=== PATIENT | male | born 1980 | race Caucasian/White ===

== ENCOUNTER 2017-10-30 10:56 | Inpatient (IN) | payer MEDICAID ==
[~2017-10-30] VITALS: Ht 175.3 cm; Wt 112.9 kg
[2017-10-30] MEDS ORDERED: NACL 0.9% 1,000 ML IV ONE (11:02)
[2017-10-30 11:03] VITALS: BP_SYST 155
[2017-10-30] MEDS ORDERED: MORPHINE 4 MG/ML INJ. SYRINGE IVP ONE (11:15)
[2017-10-30] MEDS ORDERED: ONDANSETRON HCL 4 MG/2 ML VIAL IVP ONE ×2 (11:15→18:15)
[2017-10-30 11:32] LABS: BASOPHILS % (AUTO) 0.5 % (0.0-2.0); EOSINOPHILS # (AUTO) 0.3 K/uL (0.0-0.4); EOSINOPHILS % (AUTO) 2.8 % (0.0-4.0); HEMATOCRIT 47.6 % (36-54); HEMOGLOBIN 15.8 g/dL (14.0-18.0); LYMPHOCYTES # (AUTO) 1.5 K/uL (1.0-5.5); LYMPHOCYTES % (AUTO) 15.6 % (20.5-51.5); MEAN CORPUSCULAR HEMOGLOBIN 28 pg (27-31); MEAN CORPUSCULAR HGB CONC 33 % (32-36); MEAN CORPUSCULAR VOLUME 85 fL (79.0-98.0); MONOCYTES # (AUTO) 0.7 K/uL (0.0-1.0); MONOCYTES % (AUTO) 7.3 % (1.7-9.3); NEUTROPHILS # (AUTO) 7.2 K/uL (1.8-7.7); NEUTROPHILS % (AUTO) 73.8 % (40.0-70.0); PLATELET COUNT (AUTO) 265 K/uL (130-430); WHITE BLOOD COUNT (AUTO) 9.7 K/uL (4.8-10.8)
[2017-10-30 11:41] LABS: BILIRUBIN,URINE NEGATIVE (NEGATIVE); BLOOD, URINE NEGATIVE (NEGATIVE); CLARITY/URINE CLEAR (CLEAR); COLOR,URINE YELLOW (YELLOW); GLUCOSE,URINE NEGATIVE (NEGATIVE); KETONES,URINE NEGATIVE (NEGATIVE); LEUKOCYTE ESTERASE ,URINE NEGATIVE (NEGATIVE); NITRITE, URINE NEGATIVE (NEGATIVE); PROTEIN URINE 1+ (NEGATIVE); UROBILINOGEN,URINE 0.2 (0.2-1.0)
[2017-10-30 11:43] LABS: CALCIUM 9.2 mg/dL (8.4-11.0); CREATININE 0.92 mg/dL (0.55-1.30); POTASSIUM 4.1 mmol/L (3.5-5.1)
[2017-10-30 11:47] LABS: ALBUMIN 3.5 g/dL (3.4-4.8); TOTAL BILIRUBIN 0.4 mg/dL (0.0-1.0)
[2017-10-30 11:57] LABS: BARBITURATE, URINE NEGATIVE (NEG <=200); BENZODIAZEPINE, URINE NEGATIVE (NEG <=150); CANNABINOID, URINE NEGATIVE (NEG <=50); COCAINE, URINE NEGATIVE (NEG <=150); METHAMPHETAMINES SCREEN,URINE NEGATIVE (NEG <=500); OPIATE, URINE NEGATIVE (NEG <=100); PHENCYCLIDINE SCREEN,URINE NEGATIVE (NEG <=25); UR TRICYCLIC ANTIDEPRESSANTS NEGATIVE (NEG <=300); URINE AMPHETAMINE NEGATIVE (NEG <=500); URINE METHADONE NEGATIVE (NEG <=200); URINE OXYCODONE SCREEN NEGATIVE (NEG <=100); URINE PROPOXYPHENE SCREEN NEGATIVE (NEG <=300)
[2017-10-30 11:58] LABS: PROTHROMBIN TIME 10.2 SECS (9.5-12.5)
[2017-10-30] MEDS ORDERED: D5LR 1,000 ML IV ONE (13:30)
[2017-10-30 13:38] VITALS: BP_SYST 152
[2017-10-30] MEDS ORDERED: ONDANSETRON HCL 4 MG/2 ML VIAL IVP PRN (14:00)
[2017-10-30] MEDS: FAMOTIDINE PF 20 MG/2 ML VIAL IVP SCH ×2 (14:00→21:34)
[2017-10-30 16:08] VITALS: BP_SYST 155
[2017-10-30] MEDS: AMPICILLIN SODIUM/SULBACTAM NA 1.5 GM in NS 50 ML IV SCH ×2 (16:31→18:59)
[2017-10-30] MEDS ORDERED: FAMOTIDINE PF 20 MG/2 ML VIAL IVP ONE (16:45)
[2017-10-30] MEDS ORDERED: cloNIDine HCL 0.2 MG TABLET PO PRN (17:00)
[2017-10-30] MEDS ORDERED: DEXTROSE 50% JECT 50 ML DISP.SYRIN IVP PRN (17:00)
[2017-10-30] MEDS ORDERED: amLODIPine BESYLATE 10 MG TABLET PO ONE (17:00)
[2017-10-30] MEDS ORDERED: HALOPERIDOL LACTATE 5 MG/ML VIAL IM PRN (17:00)
[2017-10-30] MEDS: QUEtiapine FUMARATE 100 MG TABLET PO SCH ×2 (18:00→21:00)
[2017-10-30] MEDS ORDERED: KETOROLAC TROMETHAMINE 30 MG VIAL IVP ONE (18:15)
[2017-10-30] MEDS ORDERED: MIDAZOLAM HCL 5 MG/5 ML VIAL IVP ONE (18:15)
[2017-10-30] MEDS ORDERED: SUCCINYLCHOLINE CHLORIDE 20 MG/ML(QUELICIN) IVP ONE (18:15)
[2017-10-30] MEDS ORDERED: MEPERIDINE HCL/PF 100 MG/ML AMP IM ONE (18:15)
[2017-10-30] MEDS ORDERED: CEFAZOLIN 2 GM IVPB PREMIX 50 ML IV ONE (18:15)
[2017-10-30] MEDS ORDERED: BUPIVACAINE /PF 0.5% 30 ML VIAL INJ ONE (18:15)
[2017-10-30] MEDS ORDERED: NS 1000 ML BAG IV ONE (18:15)
[2017-10-30] MEDS ORDERED: LIDOCAINE 1% 10 MG/ML, 20 ML MDV INJ ONE (18:15)
[2017-10-30] MEDS ORDERED: fentaNYL CITRATE 250 MCG/5 ML AMP IV ONE (18:15)
[2017-10-30] MEDS ORDERED: DEXAMETHASONE SOD PHOSPHATE 4 MG/ML VIAL IVP ONE (18:15)
[2017-10-30] MEDS ORDERED: LR 1,000 ML IV.SOLN IV ONE (18:15)
[2017-10-30] MEDS ORDERED: SEVOFLURANE 15 MIN GAS INH ONE (18:15)
[2017-10-30] MEDS ORDERED: PROPOFOL 200MG/ 20ML VIAL (DIPRIVAN) IV ONE (18:15)
[2017-10-30 19:55] VITALS: BP_SYST 147
[2017-10-31] MEDS: AMPICILLIN SODIUM/SULBACTAM NA 1.5 GM in NS 50 ML IV SCH ×5 (00:07→23:07)
[2017-10-31] MEDS: QUEtiapine FUMARATE 100 MG TABLET PO SCH ×3 (08:00→20:45)
[2017-10-31 08:40] VITALS: BP_SYST 137
[2017-10-31] MEDS: FAMOTIDINE PF 20 MG/2 ML VIAL IVP SCH ×2 (09:00→20:42)
[2017-10-31] MEDS: amLODIPine BESYLATE 10 MG TABLET PO SCH (09:22)
[2017-10-31 12:08] VITALS: BP_SYST 134
[2017-10-31] MEDS ORDERED: MEPERIDINE HCL/PF 50 MG/ML AMP ONE (15:39)
[2017-10-31 16:23] VITALS: BP_SYST 139
[2017-10-31] MEDS ORDERED: fentaNYL CITRATE/PF 100 MCG/2 ML AMP ONE (18:28)
[2017-10-31] MEDS ORDERED: HYDROmorphone 1 MG INJ. 1 MG/ML AMPUL IVP PRN (19:45)
[2017-10-31] MEDS ORDERED: MEPERIDINE HCL/PF 25 MG/ML DISP.SYRIN IVP PRN (19:45)
[2017-10-31] MEDS ORDERED: KETOROLAC TROMETHAMINE 30 MG VIAL IM ONE (19:45)
[2017-10-31] MEDS ORDERED: ONDANSETRON HCL 4 MG/2 ML VIAL IVP ONE (19:45)
[2017-10-31] MEDS ORDERED: fentaNYL CITRATE/PF 100 MCG/2 ML AMP IVP PRN (19:45)
[2017-10-31] MEDS ORDERED: NALOXONE HCL 0.4 MG/ML AMP (NARCAN) IVP ONE (19:45)
[2017-10-31] MEDS ORDERED: MIDAZOLAM HCL 5 MG/5 ML VIAL IVP PRN (19:45)
[2017-10-31 20:22] VITALS: BP_SYST 130
[2017-10-31] MEDS: MORPHINE 4 MG/ML INJ. SYRINGE IVP PRN (20:38)
[2017-10-31] MEDS: KETOROLAC TROMETHAMINE 15 MG VIAL IVP PRN (23:53)
[2017-11-01] MEDS: AMPICILLIN SODIUM/SULBACTAM NA 1.5 GM in NS 50 ML IV SCH (05:04)
[2017-11-01] MEDS: INSULIN REGULAR, HUMAN 100 UNITS/ML, 10 ML VIAL (novoLIN R) SUBCUT PRN ×3 (06:17→20:09)
[2017-11-01 06:31] LABS: HEMATOCRIT 46.4 % (36-54); HEMOGLOBIN 15.7 g/dL (14.0-18.0); MEAN CORPUSCULAR HEMOGLOBIN 29 pg (27-31); MEAN CORPUSCULAR HGB CONC 34 % (32-36); MEAN CORPUSCULAR VOLUME 85 fL (79.0-98.0); PLATELET COUNT (AUTO) 288 K/uL (130-430); RED BLOOD CELL COUNT(AUTO) 5.48 MIL/uL (4.2-6.2); RED CELL DISTRIBUTION WIDTH 12.8 % (9.0-15.0); WHITE BLOOD COUNT (AUTO) 21.2 K/uL (4.8-10.8)
[2017-11-01 07:01] LABS: ALBUMIN 3.1 g/dL (3.4-4.8); CALCIUM 8.9 mg/dL (8.4-11.0); CREATININE 0.88 mg/dL (0.55-1.30); POTASSIUM 4.3 mmol/L (3.5-5.1)
[2017-11-01 08:00] VITALS: BP_SYST 144
[2017-11-01] MEDS: QUEtiapine FUMARATE 100 MG TABLET PO SCH ×3 (08:00→21:00)
[2017-11-01] MEDS: amLODIPine BESYLATE 10 MG TABLET PO SCH (08:55)
[2017-11-01] MEDS: FAMOTIDINE PF 20 MG/2 ML VIAL IVP SCH ×2 (08:55→20:00)
[2017-11-01 12:00] VITALS: BP_SYST 138
[2017-11-01] MEDS ORDERED: LACTOBACILLUS RHAMNOSUS GG 1 CAP CAPSULE PO ONE (12:30)
[2017-11-01] MEDS: KETOROLAC TROMETHAMINE 15 MG VIAL IVP PRN ×2 (15:53→20:00)
[2017-11-01 16:44] VITALS: BP_SYST 143
[2017-11-01] MEDS: PIPERACILLIN/TAZO 4.5GM/DEX-IS 100 ML IV SCH ×2 (17:54→22:56)
[2017-11-01] MEDS: LACTOBACILLUS RHAMNOSUS GG 1 CAP CAPSULE PO SCH (20:00)
[2017-11-01 23:20] VITALS: BP_SYST 128
[2017-11-02] MEDS: PIPERACILLIN/TAZO 4.5GM/DEX-IS 100 ML IV SCH ×3 (05:47→22:37)
[2017-11-02 06:24] LABS: HEMOGLOBIN 12.2 g/dL (14.0-18.0); MEAN CORPUSCULAR HEMOGLOBIN 30 pg (27-31); MEAN CORPUSCULAR HGB CONC 35 % (32-36); MEAN CORPUSCULAR VOLUME 85 fL (79.0-98.0); PLATELET COUNT (AUTO) 231 K/uL (130-430); RED BLOOD CELL COUNT(AUTO) 4.13 MIL/uL (4.2-6.2); WHITE BLOOD COUNT (AUTO) 13.5 K/uL (4.8-10.8)
[2017-11-02 06:53] LABS: BASOPHILS % (AUTO) 0.1 % (0.0-2.0); EOSINOPHILS % (AUTO) 0.1 % (0.0-4.0); LYMPHOCYTES # (AUTO) 0.9 K/uL (1.0-5.5); LYMPHOCYTES % (AUTO) 4.3 % (20.5-51.5); MONOCYTES # (AUTO) 0.6 K/uL (0.0-1.0); MONOCYTES % (AUTO) 2.6 % (1.7-9.3); NEUTROPHILS # (AUTO) 19.7 K/uL (1.8-7.7); NEUTROPHILS % (AUTO) 92.9 % (40.0-70.0)
[2017-11-02 06:59] LABS: ALBUMIN 2.9 g/dL (3.4-4.8); CALCIUM 8.7 mg/dL (8.4-11.0); CREATININE 0.71 mg/dL (0.55-1.30); POTASSIUM 4.1 mmol/L (3.5-5.1); TOTAL BILIRUBIN 0.8 mg/dL (0.0-1.0)
[2017-11-02 08:00] VITALS: BP_SYST 138
[2017-11-02] MEDS: QUEtiapine FUMARATE 100 MG TABLET PO SCH ×3 (08:00→21:00)
[2017-11-02] MEDS: amLODIPine BESYLATE 10 MG TABLET PO SCH (08:13)
[2017-11-02] MEDS: LACTOBACILLUS RHAMNOSUS GG 1 CAP CAPSULE PO SCH ×2 (08:13→21:06)
[2017-11-02] MEDS: FAMOTIDINE PF 20 MG/2 ML VIAL IVP SCH ×2 (08:14→21:05)
[2017-11-02 09:25] LABS: BASOPHILS % (MANUAL) 0 % (0-2); EOSINOPHILS % (MANUAL) 0 % (0-7); LYMPHOCYTES % (MANUAL) 13 % (20-46); MONOCYTES % (MANUAL) 7 % (0-11)
[2017-11-02 11:57] VITALS: BP_SYST 133
[2017-11-02 16:18] VITALS: BP_SYST 139
[2017-11-02 19:00] VITALS: BP_SYST 129
[2017-11-02 20:00] VITALS: BP_SYST 129
[2017-11-02] MEDS ORDERED: FAMOTIDINE PF 20 MG/2 ML VIAL ONE (21:17)
[2017-11-02] MEDS: INSULIN REGULAR, HUMAN 100 UNITS/ML, 10 ML VIAL (novoLIN R) SUBCUT PRN (21:18)
[2017-11-02] MEDS: MORPHINE 4 MG/ML INJ. SYRINGE IVP PRN (21:23)
[2017-11-03] VITALS: BP_SYST 117
[2017-11-03] MEDS: PIPERACILLIN/TAZO 4.5GM/DEX-IS 100 ML IV SCH ×3 (05:47→21:37)
[2017-11-03] MEDS: MORPHINE 4 MG/ML INJ. SYRINGE IVP PRN ×3 (05:59→17:47)
[2017-11-03 06:02] LABS: CALCIUM 8.8 mg/dL (8.4-11.0); CREATININE 0.8 mg/dL (0.55-1.30); POTASSIUM 3.8 mmol/L (3.5-5.1)
[2017-11-03 06:03] LABS: BASOPHILS % (AUTO) 0.4 % (0.0-2.0); EOSINOPHILS # (AUTO) 0.4 K/uL (0.0-0.4); EOSINOPHILS % (AUTO) 3.7 % (0.0-4.0); HEMATOCRIT 35.2 % (36-54); LYMPHOCYTES % (AUTO) 29.1 % (20.5-51.5); MEAN CORPUSCULAR HEMOGLOBIN 29 pg (27-31); MEAN CORPUSCULAR HGB CONC 34 % (32-36); MEAN CORPUSCULAR VOLUME 86 fL (79.0-98.0); MONOCYTES # (AUTO) 1.4 K/uL (0.0-1.0); MONOCYTES % (AUTO) 13.2 % (1.7-9.3); NEUTROPHILS # (AUTO) 5.6 K/uL (1.8-7.7); NEUTROPHILS % (AUTO) 53.6 % (40.0-70.0); PLATELET COUNT (AUTO) 226 K/uL (130-430); RED BLOOD CELL COUNT(AUTO) 4.09 MIL/uL (4.2-6.2); RED CELL DISTRIBUTION WIDTH 13.5 % (9.0-15.0); WHITE BLOOD COUNT (AUTO) 10.4 K/uL (4.8-10.8)
[2017-11-03] MEDS: INSULIN REGULAR, HUMAN 100 UNITS/ML, 10 ML VIAL (novoLIN R) SUBCUT PRN ×2 (06:24→11:40)
[2017-11-03 08:00] VITALS: BP_SYST 134
[2017-11-03] MEDS: QUEtiapine FUMARATE 100 MG TABLET PO SCH ×3 (08:00→21:00)
[2017-11-03] MEDS: FAMOTIDINE PF 20 MG/2 ML VIAL IVP SCH ×2 (09:12→21:37)
[2017-11-03] MEDS: LACTOBACILLUS RHAMNOSUS GG 1 CAP CAPSULE PO SCH ×2 (09:13→21:37)
[2017-11-03] MEDS: amLODIPine BESYLATE 10 MG TABLET PO SCH (09:14)
[2017-11-03 12:12] VITALS: BP_SYST 129
[2017-11-03 16:00] VITALS: BP_SYST 143
[2017-11-03 20:00] VITALS: BP_SYST 138
[2017-11-03] MEDS: KETOROLAC TROMETHAMINE 15 MG VIAL IVP PRN (23:52)
[2017-11-04 00:59] VITALS: BP_SYST 125
[2017-11-04] MEDS: PIPERACILLIN/TAZO 4.5GM/DEX-IS 100 ML IV SCH (05:53)
[2017-11-04] MEDS: KETOROLAC TROMETHAMINE 15 MG VIAL IVP PRN (06:10)
[2017-11-04 08:13] VITALS: BP_SYST 130
[2017-11-04] MEDS: FAMOTIDINE PF 20 MG/2 ML VIAL IVP SCH (08:39)
[2017-11-04] MEDS: amLODIPine BESYLATE 10 MG TABLET PO SCH (08:40)
[2017-11-04] MEDS: LACTOBACILLUS RHAMNOSUS GG 1 CAP CAPSULE PO SCH (08:40)
[2017-11-04] MEDS: QUEtiapine FUMARATE 100 MG TABLET PO SCH (08:40)
[2017-11-04 08:51] VITALS: BP_SYST 130
== END 2017-11-04 09:22 | disposition home or self-care (01) | DRG 263 ==
LOC: SED 10:56 → SMU 13:15
PROVIDERS: ADMIT Internal Medicine; ATTEND Internal Medicine
PROC: 0FT44ZZ Resection of Gallbladder, Percutaneous Endoscopic Approach (ICD-10-PCS; principal; 2017-10-31 17:00)
DX: K80.62 Calculus of gallbladder and bile duct with acute cholecystitis without obstruction (principal); F20.9 Schizophrenia, unspecified; I10 Essential (primary) hypertension; E11.9 Type 2 diabetes mellitus without complications; D72.829 Elevated white blood cell count, unspecified; E66.3 Overweight; F17.210 Nicotine dependence, cigarettes, uncomplicated; G47.33 Obstructive sleep apnea (adult) (pediatric); K82.8 Other specified diseases of gallbladder; K21.9 Gastro-esophageal reflux disease without esophagitis; R58 Hemorrhage, not elsewhere classified; Z68.36 Body mass index [BMI] 36.0-36.9, adult
CPT/HCPCS: 36415; 71045; 78226; 80048; 80053; 80307; 81003; 82150-TC; 82550-TC; 82962; 83690-TC; 84484; 85007; 85025; 85027; 85610-TC; 85730-TC; 87081; 88304; 93005; 96361; 96374; 96375; 99285; A9537; J0295; J0330; J0690; J1100; J1815; J1885; J2001; J2175; J2250; J2270; J2405; J2543; J2704; J3010; J3490; J7030; J7050; J7120